=== PATIENT | female | born 1995 | race Caucasian/White ===

== ENCOUNTER 2016-09-20 17:46 | Emergency (ER) | payer OTHER ==
[~2016-09-20] VITALS: Ht 162.6 cm; Wt 78.0 kg
[~2016-09-20 17:46] MED LIST: PRENAT PO
[2016-09-20 17:49] VITALS: Ht 162.6 cm; Wt 78.0 kg
--- NOTE | 2016-09-20 23:12 | RADRPT ---
PROCEDURE: CT brain without contrast CLINICAL INDICATION: Optic nerve edema TECHNIQUE: A CT of the brain was performed utilizing axial sections from the skull base through th e vertex without contrast. Sagittal and coronal images were also reformatted. The exam CTDIvol = 45. 01 mGy and DLP = 720.23 mGy-cm. COMPARISON: None available FINDINGS: No acute intracranial hemorrhage is identified. There is no mass effect or midline shift. No extra -axial fluid collection is seen. The ventricles and sulci are within normal limits for size and con figuration. The density of the brain is within normal limits. Soto-white differentiation is preser rubens. The osseous structures are unremarkable. Moderate amount of chronic-appearing frontal, ethmoid, max illary and sphenoid sinus disease with small air-fluid levels in the sphenoid sinuses. The mastoid air cells are clear. The visualized orbits demonstrate no evidence of retrobulbar mass or proptosis . RPTAT:HJJR IMPRESSION: 1.Unremarkable noncontrast CT of the brain. 2. Diffuse paranasal sinus disease. Physician Eliel Date Time Electronically viewed and signed by Physician Eliel on 09/20/2016 23:12 /
[2016-09-20] MEDS ORDERED: FLUT9.9S NASAL (23:47)
[2016-09-20] MEDS ORDERED: PRED20TA PO (23:47)
[2016-09-20] MEDS ORDERED: AMOX1TAB10 PO (23:47)
--- NOTE | 2016-09-20 23:51 | ERD ---
ER Documentation Chief Complaint Date/Time DATE: 09/20/16 TIME: 23:50 Chief Complaint bilat optic nerve edema from optho [facility] This is a 20-year-old female with bilateral optic nerve edema who was sent by ophthalmology for evaluation and a head CT. Patient says she has had nasal pain and congestion over the past 2 weeks along with a runny nose. Drainage is not purulent. Denies any visual acuity changes other than saying that her vision tends to bother her when she has to strain her eyes. No headache. No other current complaints. ROS All systems reviewed and are negative except as per history of present illness. Medications Home Meds Active Scripts Prednisone* (Prednisone*) 20 Mg Tab, 40 MG PO DAILY for 4 Days, TAB Prov:SHIRA ACEVEDO 09/20/16 Fluticasone Propionate (Flonase Allergy Relief) 9.9 Ml [place].susp, 1 SPRAY NASAL BID, #1 BOTTLE TO EACH NOSTRIL Prov:SHIRA ACEVEDO 09/20/16 Amoxicillin/Potassium Clav (Amox-Clav 875-125 mg Tablet) 875-125 mg Tab, 1 TAB PO BID for 7 Days, #14 TAB Prov:SHIRA ACEVEDO 09/20/16 Reported Medications Multivit/Min/Fol Ac/Iron/Pren* ( S*) 1 Tab Tab, 1 TAB PO DAILY, TAB 02/16/16 Allergies Allergies: Coded Allergies: No Known Allergy (Unverified , 03/15/16) PMhx/Soc History of Surgery: No Anesthesia Reaction: No Hx Neurological Disorder: No Hx Respiratory Disorders: No Hx Cardiac Disorders: No Hx Psychiatric Problems: No Hx Miscellaneous Medical Probl: No Hx Alcohol Use: No Hx Substance Use: No Hx Tobacco Use: No Physical Exam Vitals Vital Signs Date Time Temp Pulse Resp B/P Pulse Ox O2 Delivery O2 Flow Rate FiO2 09/20/16 17:49 98.8 100 20 131/79 100 Physical Exam Const: [] Head: Atraumatic Eyes: Normal Conjunctiva ENT: Normal External Ears, Nose and Mouth. Neck: Full range of motion..~ No meningismus. Resp: Clear to auscultation bilaterally Cardio: Regular rate and rhythm, no murmurs Abd: Soft, non tender, non distended. Normal bowel sounds Skin: No petechiae or rashes Back: No midline or flank tenderness Ext: No cyanosis, or edema Neur: Awake and alert Psych: Normal Mood and Affect Procedures/MDM Medical decision-making: CT shows pansinusitis. This is likely cause of this papilledema. I did not appreciate any papilledema on my own funduscopic examination. Patient be discharged home with Augmentin, prednisone, Flonase and told to follow-up with ophthalmology tomorrow. Copy of CT scan was made available to patient. Departure Diagnosis: Primary Impression: Pain in eye Laterality: bilateral Qualified Code: H57.13 - Pain in eye, bilateral Condition: Stable Patient Instructions: Blurred Vision, Sinusitis, Abx Tx SHIRA ACEVEDO Sep 20, 2016 23:51
[2016-09-21 00:50] VITALS: BP 125/78; PULSE 104; RESP 17; TEMP 98.1
== END 2016-09-21 00:50 | disposition home or self-care (01) ==
LOC: E/R 17:46
DX: H57.13 Ocular pain, bilateral (principal)
CPT/HCPCS: 70450; Z7502